=== PATIENT | male | born 1990 | race Caucasian/White ===

== ENCOUNTER → 2020-03-15 14:07 | Outpatient (BNVA) | payer BC, SELFPAY | PROVIDERS: Visit Provider Nurse Practitioner Family | DX: Z20.822 Contact with and (suspected) exposure to COVID-19 (principal) | CPT/HCPCS: 87635 ==

== ENCOUNTER 2020-05-24 10:25 | Emergency (ER) | payer BC, SELFPAY ==
[2020-05-24 10:31] VITALS: BP 139/69; PULSE 65; RESP 18; TEMP 37.2; O2SAT 95; BMI 25.0
[2020-05-24 10:41] VITALS: BP 139/96; PULSE 62; RESP 18; TEMP 37.2; O2SAT 98
--- NOTE | 2020-05-24 10:56 | W.ED.NAVMDI ---
HPI - Nausea/Vomiting/Diarrhea General: Chief complaint: Nausea/Vomiting/Diarrhea Stated complaint: N/V X 5 DAYS Time Seen by Provider: 05/24/20 10:30 History of Present Illness: HPI Narrative: 29-year-old male presents emergency room with complaint of persistent nausea vomiting x5 days he denies hematochezia melena hematemesis coffee-ground emesis no recent oral antibiotics use.. He states is worse when he eats better if he fast. He is not really taken anything for it no other family members have been sick. He also notes he gets a lot of eructations with foul smelling effects. He denies any chest pain. MD elicited complaint: nausea, vomiting and diarrhea Onset (ago): day(s) (5) Description of vomiting: watery and bilious Description of diarrhea: lose Associated nausea: Yes Associated abdominal pain: Yes Location of pain: Diffuse Pain consistency: intermittent and now resolved Severity: moderate Quality: cramping Exacerbating factors: eating Relieving factors: other (Fasting) Associated symtoms: Reports anorexia and nausea; Denies altered mental status, anxiety, bloating, change in vision, chest pain, cough, diaphoresis, decreased urine output, dizziness, dysuria, epistaxis, fatigue, fecal incontinence, fevers/chills, headache(s), malaise, myalgias, numbness, palpitations, rash, short of breath, syncope, tenesmus, tinnitus or weakness Treatment prior to arrival: none Review of Systems Const: Denies: fatigue, malaise or diaphoresis Eyes: Denies: change in vision ENMT: Denies: tinnitus or epistaxis Card: Denies: chest pain, palpitations or syncope Resp: Denies: dyspnea, productive cough or non-productive cough GI: Reports: nausea; Denies: bloating or fecal incontinence : Denies: dysuria Skin/Breast: Denies: rash or pruritus Neuro: Denies: headache(s) Psych: Denies: anxiety Physical Exam Const: COMMON NORMALS: no acute distress EXAM LIMITATIONS: no altered mental status GENERAL APPEARANCE: cooperative and comfortable ORIENTATION/CONSCIOUSNESS: Yes awake, Yes oriented to person, Yes oriented to place and Yes oriented to time HENMT: COMMON NORMALS: normocephalic, atraumatic and hearing grossly normal bilaterally HEAD & SCALP: normocephalic and atraumatic Neck/C-Spine: COMMON NORMALS: no JVD Lymph: LYMPHATIC: no lymphadenopathy noted and no lymphedema noted Resp: COMMON NORMALS: normal respiratory effort, No retractions, No use of accessory muscles and clear to auscultation bilaterally AUSCULTATION: clear to auscultation bilaterally Cardio: COMMON NORMALS: no JVD, regular rate, regular rhythm and No murmurs present (Cardio) RATE: regular rate RHYTHM: regular rhythm GI: COMMON NORMALS: Soft to palpation and No hepatosplenomegaly present AUSCULTATION: Yes normoactive bowel sounds PALPATION: Yes Soft to palpation, No Tenderness to palpation present (GI), No Guarding due to palpation present (GI) and Yes No hepatosplenomegaly present Extremity: COMMON NORMALS: normal to inspection, capillary refill normal, no clubbing, cyanosis or edema, no calf tenderness and no pedal edema Neuro: SENSORIUM/ORIENTATION: Yes oriented to person, Yes oriented to place and Yes oriented to time Skin: COMMON NORMALS: no rashes or lesions noted GENERAL SKIN EXAM: no rashes or lesions noted Course Vital Signs: Vital signs: Vital Signs Temperature 98.9 F 05/24/20 13:17 Pulse Rate 62 05/24/20 13:17 Respiratory Rate 18 05/24/20 13:17 Blood Pressure 118/72 05/24/20 13:17 Pulse Oximetry 98 05/24/20 13:17 MDM - Nausea/Vomiting/Diarrhea MDM Narrative: Medical decision making narrative: For fluids and antibiotics he is feeling better. Reviewed labs with him. Will discharge home change him to Protonix also gave him Zofran to use as needed clear liquid diet for 24 hours and advance as tolerated. Lab Data: Labs: Lab Results 05/24/20 05/24/20 05/24/20 Range/Units 10:40 10:40 10:40 WBC 7.0 (4.0-10.0) 10^3/ uL RBC 6.08 H (4.1-5.3) 10^6/u L Hgb 17.9 H (11.7-16.6) g/dL Hct 50.4 (42.0-52.0) % MCV 82.9 (80-94) fL MCH 29.4 (28.0-34.0) pg MCHC 35.5 (30.0-36.0) g/dL RDW 11.8 L (12.1-15.1) % Plt Count 185 (130-400) 10^3/c mm MPV 11.0 H (7.4-10.4) fL Neut % (Auto) 55.2 % Lymph % (Auto) 22.4 % [place] % (Auto) 15.5 % Eos % (Auto) 6.2 % Baso % (Auto) 0.6 % Neut # (Auto) 3.83 (1.8-7.7) 10^3/u L Lymph # (Auto) 1.6 (0.8-4.8) 10^3/u L [place] # (Auto) 1.1 H (0.2-0.9) 10^3/u L Eos # (Auto) 0.4 (0.0-0.8) 10^3/u L Baso # (Auto) 0.0 (0.0-0.1) 10^3/u L Nucleated RBC % (a uto) 0 % Nucleated RBCs # 0.0 /100WBC Sodium 136 (136-145) mmol/L Potassium 3.3 L (3.5-5.1) mmol/L Chloride 98 (98-107) mmol/L Carbon Dioxide 30 H (22-29) mmol/L Anion Gap 11.3 (5-19) BUN 9 (6-20) mg/dL Creatinine 0.9 (0.7-1.2) mg/dL GFR Calculation 101.2 (90-130) mL/min Glucose 90 (65-115) mg/dL Calculated Osmolal ity 280 L (285-295) mOsm/k g Calcium 8.5 (8.5-10.5) mg/dL Total Bilirubin 0.8 (0.15-1.2) mg/dL AST 37 (0-40) U/L ALT 22 (0-41) U/L Alkaline Phosphata se 48 (40-130) IU/L Total Protein 6.9 (6.6-8.7) g/dL Albumin 4.3 (3.5-5.2) g/dL Globulin 2.6 (1.3-4.6) g/dL Lipase 26 (13-60) U/L H. pylori IgG Anti body Negative (Negative) Discharge Plan Discharge Patient Disposition: Home Clinical Impression: Gastroenteritis Condition: Stable Prescriptions: New Zofran 4 mg tablet 4 mg PO Q6H PRN (Reason: nausea and vomiting) Qty: 20 RF: 0 Protonix 40 mg tablet,delayed release (DR/EC) 40 mg PO DAILY Qty: 60 RF: 0 Discharge Orders: Discharge ED (Routine); Ordered 05/24/20 Ordered By: Bruno Rendon Discharge Diet: Clear Liquid Discharge Activity: Increase activity as tolerated Patient Instructions: Opioid Safety Activity Restrictions/Additional Instructions: If not improving recheck with either your primary care doctor or with the ER. Coding Level of Care Code ED [employer] for [employer] F[employer] Exam Comprehensive
[2020-05-24] MEDS: ondansetron 2 mg/ML SDV 2 mL 4 MG IVP (11:07)
[2020-05-24] MEDS: sodium chloride 0.9% 1,000 ML 999 ML IV ×2 (11:07→12:09)
[2020-05-24 11:16] LABS: Basophils % 0.6 %; Eosinophils # 0.4 10^3/uL (0.0-0.8); Eosinophils % 6.2 %; Hematocrit 50.4 % (42.0-52.0); Hemoglobin 17.9 g/dL (11.7-16.6); Lymphocytes # 1.6 10^3/uL (0.8-4.8); Lymphocytes % 22.4 %; Mean Corpuscular HGB Conc 35.5 g/dL (30.0-36.0); Mean Corpuscular Hemoglobin 29.4 pg (28.0-34.0); Mean Corpuscular Volume 82.9 fL (80-94); Monocytes # 1.1 10^3/uL (0.2-0.9); Monocytes % 15.5 %; Neutrophils # 3.83 10^3/uL (1.8-7.7); Neutrophils % 55.2 %; Nucleated Red Blood Cells % 0 %; Platelet Count 185 10^3/cmm (130-400); Red Blood Count 6.08 10^6/uL (4.1-5.3); Red Cell Distribution Width 11.8 % (12.1-15.1)
[2020-05-24 11:32] LABS: Alanine Aminotransferase 22 U/L (0-41); Albumin Level 4.3 g/dL (3.5-5.2); Alkaline Phosphatase 48 IU/L (40-130); Anion Gap 11.3 (5-19); Aspartate Amino Transferase 37 U/L (0-40); Blood Urea Nitrogen 9 mg/dL (6-20); Calcium 8.5 mg/dL (8.5-10.5); Carbon Dioxide 30 mmol/L (22-29); Chloride 98 mmol/L (98-107); Globulin 2.6 g/dL (1.3-4.6); Glomerular Filtration Rate 101.2 mL/min (90-130); Glucose 90 mg/dL (65-115); Lipase 26 U/L (13-60); Osmolality Calculated 280 mOsm/kg (285-295); Potassium 3.3 mmol/L (3.5-5.1); Sodium 136 mmol/L (136-145); Total Bilirubin 0.8 mg/dL (0.15-1.2); Total Protein 6.9 g/dL (6.6-8.7)
[2020-05-24 11:33] LABS: H. Pylori IgG Antibody Negative (Negative)
[2020-05-24 12:29] VITALS: BP 111/61; PULSE 61; RESP 18; O2SAT 97
[2020-05-24 12:31] VITALS: BP 111/61; PULSE 58; RESP 18; O2SAT 96
[2020-05-24 13:17] VITALS: BP 118/72; PULSE 62; RESP 18; TEMP 37.2; O2SAT 98
== END 2020-05-24 13:23 | disposition home or self-care (01) ==
PROVIDERS: Emergency Provider Family Medicine
DX: K52.9 Noninfective gastroenteritis and colitis, unspecified (principal)
CPT/HCPCS: 80053; 83690; 85025; 86677; 96361; 96374; 99283; J2405; J7030